=== PATIENT | female | born 1935 | race Caucasian/White ===

== ENCOUNTER 2016-06-14 00:22 | Inpatient (IN) | payer MEDICARE ==
[~2016-06-14] VITALS: Ht 152.4 cm; Wt 79.8 kg
[2016-06-14] VITALS (15 sets, daily range): BP systolic 145–203; BP diastolic 45–84; PULSE 67–79; RESP 12–20; O2SAT 92–98
[~2016-06-14 00:22] MED LIST: AMLO5TAB2 PO; ASCO500C6 PO; CARV25TA PO; CHOL400T30 PO; FURO-128 PO; GLPZ5T PO; HYDR-3939 PO; MAGN100T5 PO; MELA5TAB14 PO; MEPE100T17 PO; METF1000 PO; OMEG1CAP99 PO; POTA10TA38 PO; S-AD400T5 PO; UBID100C25 PO; VIT1TABL83 PO
[2016-06-14 12:02] LABS: BASOPHILS % (AUTO) 0.7 % (0-3); EOSINOPHILS % (AUTO) 7.2 % (0-5); MONOCYTES % (AUTO) 8.1 % (4-12); Mean Corpuscular Hemoglobin 31.1 pg (27.0-35.0); Mean Corpuscular Volume 88.3 fL (81-100); NEUTROPHILS % (AUTO) 59.1 % (40-74); Platelet Count 263 bil/L (150-400)
[2016-06-14] MEDS ORDERED: 0.9% Sodium Chloride 1,000 ML ONE ×2 (12:26→12:50)
[2016-06-14] MEDS ORDERED: Heparin 1,000 Unit/mL 10 mL Inj ONE ×2 (12:26→13:14)
[2016-06-14] MEDS ORDERED: CYAN50002 SL (12:38)
[2016-06-14] MEDS ORDERED: CHOL5000 PO (12:38)
[2016-06-14] MEDS ORDERED: MAGN100T5 PO (12:38)
[2016-06-14] MEDS ORDERED: CARV12.52 PO (12:38)
--- NOTE | 2016-06-14 12:52 | NUR ---
Admit Admitted to [facility] about 1130. SBP high at 191. States always runs high. Denies pain. Tele SR with few PACs and PVCs. IVs started and labs sent. BG 274. Procedure and recovery reviewed. States need to void frequently and cannot use bedpan. Discussed need for gill catheter and pt. agreed. Placed per order by Jennifer Agarwal RN. Verbalizes understanding of instructions. IV infusing per order. Premeds given gas operations analyst but held benadryl as pt. states it increases her BP 50 points. States allergy to fentanyl. Full report to Jennifer Agarwal RN. Taken to superintendent geophysical laboratory at 1248. Addendum: 06/14/16 at 1720 by WENDY BONNER RN Correction Admit BG 257
--- NOTE | 2016-06-14 14:54 | NUR ---
Returned from laboratory administrative director at 1435 - Star closure device right groin. Single balloon angioplasty followed by a successful Stent to Right renal artery. BR for 4 hours with IV hydration 100cc/hr during recovery. Patient and Patient's family have spoken to Dr Lopez. Plan for overnight stay.
--- NOTE | 2016-06-14 15:00 | DI96 ---
[address] [address] PERIPHERAL CATHETERIZATION/INTERVENTION REPORT PATIENT: WON KRUSE : 1935 MR#: [id number] ADMIT: 06/14/2016 JOB ID: [id number] PROCEDURE: 1. Abdominal angiography. 2. Selective right renal angiography. 3. Percutaneous intervention on the right renal artery. INDICATION: Uncontrolled hypertension. PROCEDURAL DETAILS: The procedure was done via right femoral approach initially using a 4-Belarusian system which was then upsized to 6-Belarusian. Further details are enumerated in the procedure log to which the coders and the reader is referred. ANGIOGRAPHIC FINDINGS: There is bilateral renal artery stenosis. The right side is about 80% to 90%, and the left side is about 60%. Moderate calcification of the aorta is also noted. INTERVENTIONAL PROCEDURE: We then went ahead with did an intervention on the right renal artery. Short LOPEZ guide was used and a [place] wire was used to cross this lesion. Following that, it was balloon dilated with a 2.5 balloon and then stented with a 5.0 x 15 mm Herculink stent delivered at 12 atmospheres with good angiographic results. The patient is advised to stay on dual antiplatelet therapy for one month post procedure.
[2016-06-14] MEDS ORDERED: Labetalol 5 mg/mL 4 mL Inj IVPUSH ONE (16:00)
--- NOTE | 2016-06-14 17:17 | NUR ---
Recovery/Transfer VSS. BP >200 x2 and labetolol 20mg IVP ordered but then BP dropped to 140's-160's so not given. Right groin remains stable without bleeding or hematoma. IVF per orders. Robles intact. Report to Jacquelin Clark RN about 1645.Transported to 2004 via bed with daughter and all belongings at 1700 in no distress. Bedside check done.
--- NOTE | 2016-06-14 18:47 | NUR ---
Admit Pt arrived on the unit around from [facility] with family members at the bedside. Pt A&O X3 and answers questions appropriately. R groin site star closure is soft with no oozing or hematoma. Pedal pulses palpable. Pt states minimal discomfort, no pain. Robles catheter draining pale yellow urine. Pt relived from bedrest at 1830 and ambulated to the toilet. No BM yet, but is passing gas.
[2016-06-14] MEDS: Insulin Human REGular 300 Unit/3 mL Inj - Low SUBQ SCH (21:01)
[2016-06-15] VITALS (12 sets, daily range): BP systolic 178–226; BP diastolic 73–100; PULSE 61–77; RESP 16–20; O2SAT 95–98
[2016-06-15] MEDS: Insulin Human REGular 300 Unit/3 mL Inj - Low SUBQ SCH ×4 (04:09→21:00)
--- NOTE | 2016-06-15 07:32 | NUR ---
Groin site/BP Pt right groin site soft-non tender and no hematoma noted, with distal pulses palpable. Pt off bedrest at 1830 and tolerated well. Robles DC'd @ 1930 and pt able to urinate on own. Around 0330 pt BP 220/80. notified and orders for 25mg Coreg were given. At reassessment Pt BP 179/77. Tele SR 70's.
[2016-06-15] MEDS ORDERED: Insulin Human REGular-Omnicell 100 Unit/mL IV ONE (12:00)
--- NOTE | 2016-06-15 13:17 | PCM.DIMED ---
Discharge Instructions Date of Service Jun 15, 2016 Dates of Hospitalization June 14 2016 Discharge Diagnosis Discharge Diagnosis Renal Artery Stenosis s/p stent to right renal artery Medication Instructions #Start Plavix 75 mg one per day and continue for one month. #Continue aspirin daily. #Hold metformin for 2 days. #Continue all other home medications. Diet Low fat, Low Sodium, Heart Healthy, Diabetic Activity Other (no heavy lifting (greater than 10 pounds) for one week. Take it easy for the next few days.) Call your provider Fever or Chills, Shortness of breath, Bleeding, Chest pain, Weakness (unilateral ), Other (numbness, tingling or weakness in your right leg/foot) Patient Instructions Take it easy for the next few days. Avoid activities that cause pain to the groin area. Limit lifting to 10 pounds for up to one week. Please monitor the groin area for any sign of infection (increased redness swelling pain and bruising bleeding or discharge). Contact the office immediately if any problems or go to the emergency room. Follow-up plan Follow up in the cardiology clinic in [address] Lopez Please have a blood test done tomorrow ( 06-16-16) nonfasting so we can recheck your kidney functions. Follow-up with PCP in: Other Provider: Robe Lopez MD Follow-up in: Other (2 days in the office at the cardiology office) Fredi Burch PA-C Jun 15, 2016 12:35
[2016-06-15] MEDS ORDERED: CLOP75TA3 PO (13:22)
[2016-06-15] MEDS ORDERED: CARV25TA PO (15:02)
--- NOTE | 2016-06-15 15:33 | NUR ---
Social Work Note - Initial Assessment/Discharge: D/A: See Initial Assessment, The Pt is a 80 y/o female that is listed as [facility] for bilateral renal artery stenosis. The Pts PCP is DO Ramu Case and her insurance is [employer] Medicare Complete HMO, no LTC or VA benefits. EMR reviewed, the Pt lives in a manufactured home in [place] with her daughter. Advanced Directive in chart. The Pt reports having three steps into the home, no concerns noted. The Pt does not use any DME and has no HH/SNF history. The Pt's daughter provides assistance as needed regarding cooking, cleaning, and shopping; Pt manages self-care. The Pt denies any needs at this time, SW to follow if needs arise. P: The Pt to discharge home today with family providing POV transportation. The Pt denies any needs at this time, SW to follow if needs arise. Addendum: 06/15/16 at 1534 by RADHA VOGEL Amended: Links added. Addendum: 06/15/16 at 1535 by RADHA VOGEL EDDIE Hoover MSW
[2016-06-15] MEDS ORDERED: Labetalol 5 mg/mL 4 mL Inj IVPUSH ONE (16:45)
--- NOTE | 2016-06-15 16:56 | PCM.PNCARD ---
Subjective Date of service Jun 15, 2016 Chief Complaint Hypertension History of Present Illness This patient is a 80-year-old woman with history of bilateral renal artery stenosis and uncontrolled hypertension. She was admitted on 06/14/[address] Lopez and patient was found to have bilateral renal artery stenosis with 80-90 % occlusion of the right side and about 60% occlusion of the left side. He also noted moderate calcification of the aorta. He intervened on the right renal artery with a 2.5 balloon and then stented with a 5.015 mm Herculink stent. The patient was brought upstairs for monitoring overnight and was planned for discharge the next day. She denied any pain or swelling in the right groin, new numbness tingling or weakness swelling in the right leg. There is been no fever or chill. Patient had an uneventful night though complained of some mild edema in her feet which is not uncommon. Blood pressures continued to be somewhat elevated though there was some confusion with her medications on the floor. Upon reevaluation as we attempted to discharge the patient she was found to have an elevated blood pressure of 214/80 by the nurse and 202/80 manually by myself. She denies headache, blurred vision, chest pain or palpitation. These readings were despite second dose of carvedilol and hydralazine here. I contacted Dr. Lopez skin was advised by him to stop her Coreg going forward. He recommended labetalol 40 mg IV now. Then start 300 mg twice a day tomorrow. He also wants and Norvasc 10 mg daily. Patient will be held overnight for observation. I have asked nursing staff to monitor blood pressure and pulse closely after labetalol dose. If blood pressure is below 160 systolically have advised him to contact the fluid jet cutter operator front end wheel loader operator before starting the Norvasc 10 mg tonight. The patient claims she is otherwise had normal bowel and bladder function and feels well. Subjective: Review of systems is otherwise benign other than above. Exam Vital Signs Vital Sign - Last Date Time Temp Pulse Resp B/P Pulse Ox O2 Delivery O2 Flow Rate FiO2 06/15/16 16:03 36.9 68 18 214/79 98 Room Air Intake and Output 06/14/16 06/14/16 06/15/16 Cumulative From/Thru 14:59 22:59 06:59 06/14/16 12:07 - 06/15/16 05:05 Intake Total 1328 ml 300 ml 1628 ml Output Total 800 ml 300 ml 1100 ml Balance 528 ml 0 ml 528 ml Intake Oral 400 ml 300 ml 700 ml IV Total 928 ml 928 ml Output Urine Total 800 ml 300 ml 1100 ml # Bowel Movements 0 0 Additional Information: #General - patient is lying back in bed in no apparent distress #HEENT- benign #Chest- symmetric without retractions, lungs clear to auscultation bilaterally. #Cardiovascular - patient is somewhat hypertensive, heart regular rate and rhythm without murmur click rub or gallop. Pulses are 2+ DP bilaterally. There is no unusual edema, skin color and turgor are normal. There is no sign of infection, significant bruising, hematoma to the right groin. She is nontender there is no significant redness. No bruit. #Abdomen- soft nontender #Neurologic- alert and oriented 3, mood appropriate. #Musculoskeletal- limbs appear symmetric without significant focal changes. Lab and Diagnostics Result Diagram: 06/14/16 1157 06/15/16 0240 Assessment & Plan Assessment Patient with uncontrolled hypertension status post renal artery stent for bilateral renal artery stenosis. Patient was having continued hypertensive response. This patient is discussed with Dr. Lopez today on the phone. He has recommended stopping her carvedilol and giving labetalol 40 mg IV now and then starting 300 mg orally tomorrow twice a day. He is also recommending starting Norvasc 10 mg starting this evening if her blood pressure tolerates after labetalol dose. We will keep her overnight with hopes of discharging tomorrow. #Uncontrolled hypertension. Coreg, start labetalol 40 mg IV now. Tomorrow start labetalol 300 mg orally twice a day. Start Norvasc 10 mg daily tonight if systolic blood pressure greater than 160 after IV labetalol. If blood pressure is less than 160 please call fluid jet cutter operator front end wheel loader operator. #Diabetes hold metformin again today and tomorrow morning. BMP in the morning. Continue insulin with sliding scale per protocol for now. Problems: Plan #Uncontrolled hypertension. Stop Coreg now, start labetalol 40 mg IV now. Tomorrow start labetalol 300 mg orally twice a day. Start Norvasc 10 mg daily tonight if systolic blood pressure greater than 160 after IV labetalol. If blood pressure is less than 160 please call fluid jet cutter operator front end wheel loader operator. #Diabetes hold metformin again today and tomorrow morning. BMP in the morning. Continue insulin with sliding scale per protocol for now. Fredi Burch PA-C Jun 15, 2016 16:56
--- NOTE | 2016-06-15 19:51 | NUR ---
Blood pressures/Blood sugars Pt had a morning BP of 199/80 asymptomatic. notified. Stat Coreg and hydralazine dose given. BP came down to 191/73 asymptomatic. Later on BP increased to 214/79 asymptomatic. MD notified and instructed to give Labetilol IV push. No improvement from BP. Instructed to give amlodipine if needed via parameters and to start PO labetilol in the AM. Blood sugar this AM 245, pt received sliding scale regular insulin. Later in the afternoon, CBG 394. notified and ordered stat 6 units of regular insulin. CBG came down. Pt later additionally received afternoon sliding scale insulin. All of this relayed to ZARA FREY. Pt asymptomatic throughout.
[2016-06-16 00:25] VITALS: PULSE 66
[2016-06-16 03:09] VITALS: BP 183/79; PULSE 66; RESP 20; O2SAT 94
[2016-06-16] MEDS: Insulin Human REGular 300 Unit/3 mL Inj - Low SUBQ SCH ×3 (03:20→15:29)
--- NOTE | 2016-06-16 05:57 | NUR ---
Blood Pressure Pt BP's this shift 211/77 178/78 183/79. Pt asymptomatic and denies dizziness, SOB or CP. Pt received 10mg Norvasc and 300mg Labetalol. Tele SR
[2016-06-16 08:00] VITALS: BP 198/88; PULSE 67; PULSE 69; RESP 16; O2SAT 96
--- NOTE | 2016-06-16 08:32 | PCM.DIMED ---
Discharge Instructions Date of Service Jun 16, 2016 Dates of Hospitalization 06/14/2016 Discharge Diagnosis Discharge Diagnosis Renal Artery Stenosis s/p stent to right renal artery Medication Instructions Please take all medications as prescribed and explained below. Diet Low fat, Low Sodium, Heart Healthy, Diabetic Activity Other (please see below) Call your provider Shortness of breath, Bleeding, Chest pain, Other Patient Instructions No car driving for couple of days; you can shower starting today. Do not soak in bath tub for one week; no heavy lifting, no more than 10 lb for one week; Otherwise please be physically active as tolerated. Re- start Metformin on 06/17/2016 You need to take Plavix (Clopidogrel) one tablet every day for at least one month. you also need to take Aspirin 81 mg daily We started you on Labetalol 300 mg one tablet twice a day for your blood pressure Please stop taking Carvedilol. Please continue Hydralazine 25 mg one tablet three times a day. We started you on Amlodipine 10 mg one tablet daily Please take Furosemide 40 mg one tablet TWICE a day (in the morning and in the afternoon) Please take Potassium Chloride 10 mEq one tablet twice a day with meal. Follow-up with PCP in: 1 week Provider: Jere Dumont PA-C Follow-up in: 1 week (2 days in the office at the cardiology office) Additional Information Please check BMP and CBC in one week Jere Dumont PA-C Jun 16, 2016 08:32
[2016-06-16] MEDS ORDERED: HYDR-3939 PO (08:44)
[2016-06-16] MEDS ORDERED: CLOP75TA28 PO (08:44)
[2016-06-16] MEDS ORDERED: LABE300T PO (08:54)
[2016-06-16] MEDS ORDERED: ASPI81TA3 PO (09:02)
--- NOTE | 2016-06-16 09:03 | PCM.DC.CAR ---
Discharge Summary Date of Service Jun 16, 2016 Date of Hospital Admission Jun 14, 2016 at 17:09 Date of Discharge: Jun 16, 2016 Providers: Admitting Physician: Robe Lopez MD Primary Care Physician: Ramu Case DO Attending Physician: Robe Lopez MD Diagnosis at Time of Discharge Bilateral Renal Artery Stenosis, s/p stent placement to right renal artery(2016), uncontrolled HTN Problems: Brief History and Physical: This is a very pleasant 80 old lady how has a long standing hx of uncontrolled HTN. She had a renal scan which showed near occlusion of the right renal artery and moderate to severe disease in the left renal artery. She had elective peripheral catheterization done on 06/14/2016. Hospital Course: On 06/14/2016 she had abdominal angiography, selective right renal angiography, and percutaneous intervention on the right renal artery with stent placement. I explained the patient that she needs to take Plavix every day at least one month. The right groin area (access site) is slightly tender with palpation, no hematoma, no bleeding, no bruits with auscultation. She ambulates freely. She denies having any back pain, chest discomfort or MORALES/SOB. Her HTN was poorly controlled and Carvedilol was stopped and she was started on Labetalol 300 mg BID; she also was prescribed amlodipine 10 mg daily, hydralazine 25 mg TID and she was advised to take Furosemide 40 mg BID and Potassium chloride 10 mEq BID. After medication adjustments her HTN got better. Labs showed normal kidney function and electrolytes. On telemetry sinus rhythm with HR in 60s Medications on discharge are below. Physical Exam on discharge: General: no acute distress ENT: MMM, sclerae unicteric Neck: supple, no thyromegaly Pulmo: normal breathing sounds bilaterally, no crackles, no wheezing Cardio: RRR, normal S1 and S2, no murmur appreciated Abdomen: nontender with palpation Vascular: peripheral pulses preserved Neuro: A&O x3, no gross abnormalities Discharge Medications Amlodipine (Amlodipine) 10 Mg Tablet 10 MG PO DAILY Ascorbic Acid (Vitamin C) 500 Mg Capsule.er 500-1,000 MG PO 1-2x daily Aspirin Chew (Aspirin Chew) 81 Mg Chew 81 MG PO DAILY Cholecalciferol (Vitamin D3) (Vitamin D3) 5,000 Unit Capsule 5,000 UNIT PO DAILY Clopidogrel (Clopidogrel) 75 Mg Tablet 75 MG PO DAILY Cyanocobalamin (Vitamin B-12) (Vitamin B-12) 5,000 Mcg Tab.subl 5,000 MCG SL DAILY Furosemide (Furosemide) 40 Mg Tablet 40 MG PO BID Take one tablet in the morning and in the afternoon Glipizide (Glipizide) 5 Mg Tablet 5 MG PO BID Hydralazine (Hydralazine) 25 Mg Tablet 25 MG PO TID Labetalol (Labetalol) 300 Mg Tablet 300 MG PO BID Magnesium Amino Acid Chelate (Magnesium) 100 Mg Tablet 1,000 MG PO DAILY Melatonin (Melatonin) 5 Mg Tablet 5 MG PO HS Metformin (Glucophage) 1,000 Mg Tablet 1,000 MG PO HS Metformin (Glucophage) 1,000 Mg Tablet 1,500 MG PO MORNING Potassium Chloride (Potassium Chloride) 10 Meq Tab.er.prt 10 MEQ PO BID TAKE WITH FOOD Ubidecarenone (Co Q-10) 100 Mg Capsule 100 MG PO DAILY As needed Meperidine (Demerol) 100 Mg Tablet 50 MG PO Q6H PRN PRN Pain Miscellaneous Medications [place]-3 Fatty Acids/Fish Oil (Fish Oil 1,200 mg Softgel) 1 Each Capsule 1 EACH PO S-Adenosylmethionine Sul Tosyl (Reggie-E) 400 Mg Tablet 400 MG PO Additional med instructions Please take all medications as prescribed and explained below. Followup Plan Follow-up plan Follow up in the cardiology clinic in [address] Lopez Please have a blood test done tomorrow ( 06-16-16) nonfasting so we can recheck your kidney functions. Discharge Activity: Other (please see below) Patient Instructions No car driving for couple of days; you can shower starting today. Do not soak in bath tub for one week; no heavy lifting, no more than 10 lb for one week; Otherwise please be physically active as tolerated. Re- start Metformin on 06/20/2016 You need to take Plavix (Clopidogrel) one tablet every day for at least one month. We started you on Labetalol 300 mg one tablet twice a day. Please stop taking Carvedilol. Please continue Hydralazine 25 mg one tablet three times a day. Jere Dumont PA-C Jun 16, 2016 09:03
[2016-06-16 12:22] VITALS: BP 166/63; PULSE 70; RESP 16; O2SAT 96
[2016-06-16] MEDS ORDERED: POTA10TA38 PO (12:49)
[2016-06-16] MEDS ORDERED: FURO40TA4 PO (12:49)
[2016-06-16] MEDS ORDERED: AMLO10TA3 PO (12:49)
[2016-06-16 15:43] VITALS: BP 169/83
--- NOTE | 2016-06-16 17:00 | NUR ---
BP/Discharge Pt's BP 198/88, PA made aware, further BP medication adjustments made by , Pt received amlodipine and lasix doses with f/u BP ~2.5 hours after per instructions, Pt's BP 169/83, Pt denied dizziness with ambulation to BR, paged and PA updated. Pt's blood sugar 398, due to Q6 timing Pt had already eaten lunch prior to blood sugar check, family at bedside report that she is normally very diet controlled and numbers in the 300s are not uncommon if she eats a lot of carbs, family also reports that they will resume glipizide prior to dinnertime tonight, Pt's asymptomatic, PA made aware, instructed to continue with discharge, Pt discharged to home with daughter after receiving insulin per sliding scale at ~1630. Pt given discharge educational materials on all new prescriptions, HTN, and angioplasty/stent booklet. Pt's IV access D/C'd and intact X2. Pt instructed that Dr. Lopez's office would be contacting them with f/u appointment. Pt and family verbalized understanding of all discharge instructions. Pt and family verbalized that they would closely monitor Pt's BP. All belongings accompanied Pt at time of discharge.
== END 2016-06-16 16:45 | disposition home or self-care (01) | DRG 675 ==
LOC: SOUO 00:22 → PCC 17:09
PROVIDERS: ADMIT Internal Medicine Cardiovascular Disease; ATTEND Internal Medicine Cardiovascular Disease
PROC: 04793DZ Dilation of Right Renal Artery with Intraluminal Device, Percutaneous Approach (ICD-10-PCS; principal; 2016-06-14)
PROC: B4161ZZ Fluoroscopy of Right Renal Artery using Low Osmolar Contrast (ICD-10-PCS; 2016-06-14)
PROC: B4101ZZ Fluoroscopy of Abdominal Aorta using Low Osmolar Contrast (ICD-10-PCS; 2016-06-14)
DX: I70.1 Atherosclerosis of renal artery (principal); I10 Essential (primary) hypertension; E11.9 Type 2 diabetes mellitus without complications; Z79.82 Long term (current) use of aspirin; Z79.84 Long term (current) use of oral hypoglycemic drugs

== ENCOUNTER 2016-09-22 00:51 | Day surgery (SDC) | payer MEDICARE ==
[~2016-09-22] VITALS: Ht 157.5 cm; Wt 80.4 kg
[2016-09-22] VITALS (13 sets, daily range): BP systolic 145–193; BP diastolic 46–80; PULSE 57–66; RESP 11–16; O2SAT 91–97
[~2016-09-22 00:51] MED LIST changes: -AMLO5TAB2 PO; +ASPI81TA3 PO; -CARV25TA PO; +CREST10T PO; -FURO-128 PO; +FURO40TA4 PO; +LABE300T PO; -MEPE100T17 PO; -POTA10TA38 PO; -VIT1TABL83 PO
[2016-09-22 06:40] LABS: BASOPHILS % (AUTO) 0.7 % (0-3); EOSINOPHILS % (AUTO) 17.1 % (0-5); MONOCYTES % (AUTO) 7.4 % (4-12); Mean Corpuscular Hemoglobin 30.5 pg (27.0-35.0); Mean Corpuscular Volume 91.2 fL (81-100); NEUTROPHILS % (AUTO) 46.8 % (40-74); Platelet Count 262 bil/L (150-400)
[2016-09-22] MEDS ORDERED: FURO40TA4 PO (06:48)
[2016-09-22] MEDS ORDERED: Heparin 10,000 Unit/1,000 mL NS Premix IV ONE (07:39)
[2016-09-22] MEDS ORDERED: Heparin 1,000 Unit/mL 10 mL Inj ONE (07:39)
--- NOTE | 2016-09-22 07:50 | NUR ---
0600 admit note: Patient ambulates into department with Family. Their questions are answered and consent was previously signed. IV's X 2 started and labs are drawn. She is prepped for procedure and gill cath inserted.
[2016-09-22] MEDS ORDERED: Nitroglycerin 50,000 mcg/250 mL D5W Premix IV ONE (08:10)
[2016-09-22] MEDS ORDERED: HYDROmorphone 1 mg/mL Inj ONE (08:10)
--- NOTE | 2016-09-22 09:23 | DI96 ---
[address] [address] PERIPHERAL CATHETERIZATION/INTERVENTION REPORT PATIENT: WON KRUSE : 1935 MR#: [id number] ADMIT: 09/22/2016 JOB ID: [id number] DATE: 09/22/2016 PROCEDURE: 1. Renal angiography. 2. Stenting of the right renal artery. INDICATION: Suspected in-stent restenosis. PROCEDURAL DETAILS: The reader and the coders are referred to the procedure log. Briefly, a 6-Greek sheath was used, and it was inserted via right femoral approach. A short Shaikh guide was used to selectively engage the right renal artery. Angiography revealed that there was an eccentric 60% to 70% restenosis in the previously deployed bare metal stent. This was crossed with a Runthrough wire and pre-dilated with a 4-0 balloon and then stented with a 5.0 x 12 mm Kelvin drug-coated stent. The patient is advised to stay on dual antiplatelet therapy for six months post procedure.
--- NOTE | 2016-09-22 12:23 | NUR ---
Post cardiac cath: Patient renal stent. R groin site has slight ooze that has not changed in amount and site is soft. She has completed bedrest and OOB without problem.
--- NOTE | 2016-09-22 14:47 | NUR ---
1445 DC note: Patient has been up and ambulating without problem. Robles cath DC'd and she walks to BR to void without problem. BP trend stable and groin site is dry. Reviewed DC instructions with patient and family. Hep locks X 2 Dc'd. Home with family.
== END 2016-09-22 23:59 | disposition home or self-care (01) ==
LOC: SOUO 00:51
PROVIDERS: ATTEND Internal Medicine Cardiovascular Disease
DX: T82.856A Stenosis of peripheral vascular stent, initial encounter (principal); Y84.8 Other medical procedures as the cause of abnormal reaction of the patient, or of later complication, without mention of misadventure at the time of the procedure; E11.40 Type 2 diabetes mellitus with diabetic neuropathy, unspecified; E11.22 Type 2 diabetes mellitus with diabetic chronic kidney disease; I12.9 Hypertensive chronic kidney disease with stage 1 through stage 4 chronic kidney disease, or unspecified chronic kidney disease; N18.9 Chronic kidney disease, unspecified; Z87.891 Personal history of nicotine dependence; Z79.84 Long term (current) use of oral hypoglycemic drugs; Z79.82 Long term (current) use of aspirin; I25.10 Atherosclerotic heart disease of native coronary artery without angina pectoris; I25.2 Old myocardial infarction; E66.9 Obesity, unspecified; I73.9 Peripheral vascular disease, unspecified
CPT/HCPCS: 36245; 36415; 37236; 80048; 85025; 93005; 99152; 99153; C1725; C1760; C1769; C1874; C1887; J1644; J2060; J2250; Q9967